=== PATIENT | female | born 1950 | race African-American/Black ===

== ENCOUNTER 2016-07-27 06:42 | Inpatient (IN) | payer OTHER ==
[~2016-07-27] VITALS: Ht 152.4 cm; Wt 131.1 kg
--- NOTE | ~2016-07-27 | H ---
[facility] [address] [place] [address] HISTORY AND PHYSICAL Name: ROBY STEPHENS Room #: 403-P ADM IN M.R.#: [id number] Admission: 07/27/16 Attend Phys: Tiffany Brownlee MD Discharge: Date of : 52 Report #: [id number] THIS REPORT FOR: //name// CC: Jay Brownlee DATE OF SERVICE: 07/27/2016 PRIMARY DOCTOR: Jay Romero MD. CHIEF COMPLAINT: Pain following a fall. HISTORY OF PRESENT ILLNESS: The patient is a 65-year-old female, morbidly obese, chronic debility who mobilizes with a walker and a wheelchair, prior CVA, depression, hypertension, presented to the ER secondary to pain following a fall. She was ambulating to the bathroom without a walker this morning when she fell to her knees. She indicates that it was a mechanical fall, but subsequent to that had bilateral knee pain and left arm pain. She has had prior CVA that has resulted in left-sided deficits in addition to having degenerative disease as well as morbid obesity limiting her mobility. She was very adamant about going home today; however, she only has her daughter and granddaughter at home and she is not capable of ambulating by herself at this time. She continues have pain. Her daughter did not feel that she was comfortable taking her home. I was asked to admit her for further therapy evaluation. PAST MEDICAL HISTORY: As stated, hypertension, prior CVA with left-sided deficits, although I found it to be mild; dyslipidemia, sleep apnea, on CPAP; morbid obesity, degenerative arthritis, diabetes, depression, prior history of herpes zoster ophthalmicus. MEDICATIONS: Cymbalta 60 daily, Aggrenox 1 b.i.d., Veena?eta 5 mg daily, lisinopril 20 daily, Os-Magdaleno 1 daily, Lipitor 80 daily, Norvasc 10 daily, ____ and Ambien at bedtime. ALLERGIES: CODEINE CAUSES HEADACHE. MILK AND OXYCODONE, REACTION UNKNOWN. SOCIAL HISTORY: She is a nonsmoker, drinks, lives with her daughter and granddaughter. She did ambulate with a walker for short distances and also uses her wheelchair. REVIEW OF SYSTEMS: A 14-point review of systems was conducted and negative except for above. FAMILY HISTORY: Reviewed and noncontributory. [facility] [address] [place] [address] HISTORY AND PHYSICAL Name: RUBEN STEPHENSITA Melissa Room #: 403-P [facility] IN .R.#: [id number] Admission: 07/27/16 Attend Phys: Tiffany Brownlee MD Discharge: Date of : 52 Report #: [id number] PHYSICAL EXAMINATION: VITAL SIGNS: Temperature of 98, pulse 79, blood pressure 120/68, and O2 sat ____% on room air. GENERAL: She is awake, alert, answering questions appropriately, in no acute respiratory distress. HEENT: Normocephalic, atraumatic. Pupils are equal. NECK: Supple. CARDIOVASCULAR: Regular rate and rhythm. No murmurs. LUNGS: Clear to auscultation bilaterally. No crackles or wheezes. ABDOMEN: Soft, obese. No distention or tenderness. EXTREMITIES: No edema. NEUROLOGIC: Nonfocal. LABS AND TESTING: X-ray of her knees bilaterally showed moderate to severe osteoarthritis involving both knees, more severe on the left. However, there is superior patellar fracture involving the apical posterior aspect of the patella and associated spur in the right lateral projection. CBC: White count of 12, H and H of 14 and 46, and platelets of 79. Sodium 139, potassium 3.9, BUN and creatinine 21 and 1.2. Her last creatinine was 1.0. In 2012, x-ray of her foot showed no acute abnormalities. ASSESSMENT AND PLAN: 1. Fall with right patella fracture and multiple contusions. We will consult ortho, but I suspect this is probably just conservative management with PT and pain medication. She is requesting a Antonio at this time, but I have indicated that she currently does not have any 5indication for it. We will get therapy to evaluate her and she may need skilled or rehab placement. 2. Chronic kidney disease. This appears to be stable overall. 3. Diabetes. Continue home meds and sliding scale insulin. 4. Sleep apnea. She can bring in her CPAP to wear here. 5. Prior cerebrovascular accident with minimal left-sided deficits. Continue her Aggrenox. 6. Hypertension. Continue home meds with holding parameters. 7. Morbid obesity. The patient would benefit from an outpatient weight loss. 8. Deep venous thrombosis prophylaxis, Lovenox. By: [id number] My Candy Brownlee MD /nt
--- NOTE | ~2016-07-27 | HC ---
[facility] [address] [place] [address] CONSULTATION Name: ROBY STEPHENS Room #: 403-P [facility] IN .R.#: [id number] Admission: 07/27/16 Attend Phys: Tiffany Brownlee MD Discharge: Date of : 52 Report #: [id number] THIS REPORT FOR: //name// CC: Jay Brownlee DATE OF SERVICE: 07/27/2016 CHIEF COMPLAINT: Bilateral knee pain. HISTORY OF PRESENT ILLNESS: The patient is a pleasant 65-year-old female seen today for evaluation of her bilateral knee pain. The patient reports that she was walking at home, was transitioning with her walker back into bed after leaving the bathroom and had her left great toe get caught on the floor or the edge of the bed and she subsequently fell. She reports a history of difficulty ambulating and primarily uses the walkers only for transfers, otherwise is using a wheelchair and she has been that way for quite some time. She reports her most recent stroke was approximately 7 years ago and she has had limited left upper and lower extremity function since that time. She does report a history of a fall approximately four months ago. She describes some difficulty with her left leg "dragging" along with her and it leaves a sahra on the floor. It does not sound like she has utilized an AFO. The patient reports that her right knee is more symptomatic than her left currently. PAST MEDICAL HISTORY: Significant for CVA x 2, hypertension, dyslipidemia, sleep apnea requiring CPAP, degenerative arthritis, type 2 diabetes, depression, herpes zoster ophthalmicus and shingles. CURRENT MEDICATIONS: Please see current MAR. ALLERGIES: CODEINE CAUSES HEADACHES, MILK AND OXYCODONE. SOCIAL HISTORY: The patient is a retired computer console operator, denies alcohol or tobacco use, ambulates minimally with a walker. REVIEW OF SYSTEMS: MUSCULOSKELETAL: The patient denies other musculoskeletal injuries. NEUROLOGIC: The patient reports diminished motor and sensory function in the left upper and lower extremities. PHYSICAL EXAMINATION: GENERAL: The patient is alert, oriented, and answers questions appropriately. VITAL SIGNS: Most recent vitals include temperature 36.8, pulse 79, respirations 18, BP 120/68. EXTREMITIES: Examination of the upper extremities reveals flexion contractures of the hand and elbow on the left side as compared to the right. No acute [address] [address] CONSULTATION Name: RUBEN STEPHENSSANFORD Torres Room #: 403-P [facility] IN M.R.#: [id number] Admission: 07/27/16 Attend Phys: Tiffany Brownlee MD Discharge: Date of : 52 Report #: [id number] swelling or deformity is noted. Hand is held in a completely flexed posture with fingers over the thumb. She has limited ability to flex and abduct the shoulder; otherwise, no active motion is noted in the upper extremities. She reports diminished sensation to light touch on the left side as compared to the right. Right side demonstrates full range of motion with no obvious motor or sensory deficit. Pelvis is stable to AP and lateral compression. Examination of the right knee demonstrates no effusion. She has mild tenderness over the patellar tendon and inferior patella. Knee is stable to varus and valgus stresses at 0 and 30 degrees. She is somewhat inhibited by her position in the bed, but is able to flex approximately 60 degrees. She reports that she can easily flex beyond 90. The patient is nontender over the quadriceps tendon, nontender over the superior patella, mild patellofemoral crepitus is noted with range of motion. She is able to flex and extend the toes and ankle against resistance. Bilateral hips: No pain with gentle range of motion. Left knee demonstrates more limited motion from 0-40 degrees. She has mild infrapatellar pain extending down over the proximal fourth of the anterior tibia. Knee is stable to varus valgus stresses. No significant effusion is noted, mild patellofemoral crepitus arc of motion of noted. No joint line tenderness is appreciated. She reports diminished sensation throughout the leg to light touch and is able to have a flicker of active great toe extension and ankle dorsiflexion, but she holds this in a position of approximately 25-30 degrees of plantar flexion, although can be brought back almost to neutral. She reports that she typically is in a more of a toe down type position, especially while trying to ambulate. Compartments are otherwise soft. No significant swelling is noted about the right or the left lower extremities. Radiographs of the knees reveal bilateral patellofemoral arthrosis and tricompartmental arthritis, more severe on the left than the right. Right knee demonstrates about the patella and a question of lucency involving the posterior apical portion of the right patella suggestive of possible fracture. Clinically, the patient was nontender over this area. IMPRESSION: 1. Bilateral anterior knee pain, osteoarthritis, trace effusion, status post fall, morbid obesity. 2. Multiple medical comorbidities. PLAN: We reviewed potential treatment options. We discussed potential utilization of further imaging studies such as MRI. After reviewing the treatment options, the patient has elected to initiate PT as well as try an intra-articular injection. Discussed with the patient that I did not seen an obvious disruption of the quadriceps tendon as she is able to actively extend her right knee without difficulty. Calves are soft and nontender. She is neurovascularly intact on the right lower extremity. We will have PT and OT work with her as well and see how she responds to the injections. At this point, I question fracture about the suprapatellar. We discussed an MRI could [facility] [address] [place] [address] CONSULTATION Name: ROBY STEPHENS Room #: 403-P ADM IN M.R.#: [id number] Admission: 07/27/16 Attend Phys: Tiffany Brownlee MD Discharge: Date of : 52 Report #: [id number] be utilized to see if there is much bone edema in this region. She preferred to hold off on that at this time. <ELECTRONICALLY SIGNED> By: Adilson Jimenez MD 07/29/16 [id number] Adilson Jimenez MD /nt
[~2016-07-27 06:42] MED LIST: ACETAMINOPHEN325 M1 PO; AGGRENOX CAPSU1 EACH PO; AMLODIPINE BESY10 MG PO; ASPIRIN EC81 M1 PO; CLONAZEPAM PO; COREG PO; COZAAR 50 MG TA50 M1 PO; CYMBALTA30 MG PO; CYMBALTA60 MG PO; DIABETA 5MG TABL5 MG PO; FENTANYL 1100 MCG/HR; GLYBURIDE 5 MG T5 M1 OR; LASIX 40 MG TAB40 MG PO; LIPITOR80 MG PO; LISINOPRIL20 MG PO; MIRALAX255 GM PO; NEXIUM40 MG PO; NORVASC 5 MG TAB5 MG PO; NOVOLOG100 UNIT/1; OS-CAL 500+D C1 EACH PO; PERCOCET 7.5-31 EACH PO; POLYETHYLENE G255 GM PO; POTASSIUM20 PO; ZOLOFT 50 MG TA50 M1 PO; ZOLPIDEM TART12.5 M1 PO; ZOLPIDEM TART12.5 MG PO
[2016-07-27 06:43] VITALS: BP 136/106
[2016-07-27] MEDS ORDERED: NORCO 5-325 TA1 EACH PO (07:54)
[2016-07-27 09:01] LABS: ABSOLUTE NEUTROPHILS 9.6 thou/uL (1.4-8.2); BASOPHILS 0.7 % (0.0-2.0); EOSINOPHILS 1.3 % (0.0-3.0); HEMATOCRIT 46.2 % (37.0-47.0); HEMOGLOBIN 14.7 gm/dL (12.0-15.0); LYMPHOCYTES 14.4 % (24.0-44.0); MCH 27.2 pg (26.0-34.0); MCHC 31.9 g/dL (28.0-37.0); MCV 85.3 fL (80.0-100.0); MONOCYTES 4.6 % (1.0-8.0); PLATELET COUNT 244 thou/uL (150-400); RBC 5.41 mil/uL (4.20-5.00); RDW 13.8 % (10.5-14.5); WBC 12.2 thou/uL (4.0-11.0)
[2016-07-27 09:03] LABS: MANUAL DIFF NO
[2016-07-27 09:08] LABS: CALCIUM 9.1 mg/dL (8.5-10.1); CREATININE 1.2 mg/dL (0.6-1.0); POTASSIUM 3.9 mmol/L (3.5-5.1)
[2016-07-27 09:38] VITALS: BP 116/72
[2016-07-27 10:35] VITALS: BP 120/68
[2016-07-27] MEDS ORDERED: NEURONTIN600 MG PO (12:17)
[2016-07-27] MEDS ORDERED: AMARYL4 MG PO (12:18)
[2016-07-27] MEDS ORDERED: HYDROCHLOROTH12.5 M1 PO (12:20)
[2016-07-27] MEDS ORDERED: JANUVIA100 MG PO (12:20)
[2016-07-27] MEDS ORDERED: TRAMADOL 50 MG50 MG PO (12:22)
[2016-07-27] MEDS ORDERED: NYSTATIN1 EA10 MC (12:22)
[2016-07-27] MEDS ORDERED: CENTRUM SILVER1 EAC4 PO (12:23)
[2016-07-27] MEDS ORDERED: MIRALAX17 GM PO (12:24)
[2016-07-27] MEDS ORDERED: [UNRECOGNIZED DRUG - OTHER] (12:26)
[2016-07-27 16:00] VITALS: BP 112/60
[2016-07-27 19:29] VITALS: BP 116/63
[2016-07-28 03:35] VITALS: BP 118/62
[2016-07-28 04:05] LABS: ABSOLUTE NEUTROPHILS 4.3 thou/uL (1.4-8.2); BASOPHILS 0.7 % (0.0-2.0); EOSINOPHILS 3.1 % (0.0-3.0); HEMATOCRIT 41.9 % (37.0-47.0); HEMOGLOBIN 13.6 gm/dL (12.0-15.0); LYMPHOCYTES 32.3 % (24.0-44.0); MCH 27.6 pg (26.0-34.0); MCHC 32.5 g/dL (28.0-37.0); MCV 85.2 fL (80.0-100.0); MONOCYTES 6.8 % (1.0-8.0); PLATELET COUNT 243 thou/uL (150-400); POLYS 57.1 % (36.0-66.0); RBC 4.92 mil/uL (4.20-5.00); RDW 14.2 % (10.5-14.5); WBC 7.5 thou/uL (4.0-11.0)
[2016-07-28 04:17] LABS: CALCIUM 8.6 mg/dL (8.5-10.1); CREATININE 1.4 mg/dL (0.6-1.0); POTASSIUM 3.6 mmol/L (3.5-5.1)
[2016-07-28 04:18] LABS: MANUAL DIFF NO
[2016-07-28 08:47] VITALS: BP 138/81
[2016-07-28 15:56] VITALS: BP 100/51
[2016-07-28 20:00] VITALS: BP 92/55
[2016-07-29 04:05] LABS: HEMATOCRIT 41.3 % (37.0-47.0); HEMOGLOBIN 13.4 gm/dL (12.0-15.0); MCH 27.6 pg (26.0-34.0); MCHC 32.4 g/dL (28.0-37.0); MCV 85.3 fL (80.0-100.0); RBC 4.84 mil/uL (4.20-5.00); WBC 7.7 thou/uL (4.0-11.0)
[2016-07-29 04:10] VITALS: BP 114/75
[2016-07-29 04:20] LABS: ALBUMIN 2.5 g/dL (3.4-5.0); CALCIUM 8.6 mg/dL (8.5-10.1); CREATININE 1.7 mg/dL (0.6-1.0); PHOSPHORUS 4.6 mg/dL (2.5-4.9); POTASSIUM 4.3 mmol/L (3.5-5.1)
[2016-07-29 07:29] VITALS: BP 106/64
[2016-07-29 16:35] VITALS: BP 107/89
[2016-07-29 19:20] VITALS: BP 106/64
[2016-07-30 04:37] VITALS: BP 120/67
[2016-07-30 05:33] LABS: CALCIUM 9.3 mg/dL (8.5-10.1); CREATININE 1.5 mg/dL (0.6-1.0); PHOSPHORUS 2.9 mg/dL (2.5-4.9); POTASSIUM 4.1 mmol/L (3.5-5.1)
[2016-07-30 07:49] VITALS: BP 139/75
[2016-07-30 07:52] VITALS: BP 139/75
[2016-07-30 16:08] VITALS: BP 123/66
[2016-07-30 19:25] VITALS: BP 132/83
[2016-07-31 05:54] VITALS: BP 164/88
[2016-07-31 07:42] VITALS: BP 134/74
[2016-07-31] MEDS ORDERED: FLEXERIL PO (09:39)
[2016-07-31] MEDS ORDERED: TRAMADOL 50 MG50 MG PO (09:39)
[2016-07-31 12:27] VITALS: BP 134/74
[2016-07-31 16:18] VITALS: BP 134/74
== END 2016-07-31 18:00 | disposition home health service (06) | DRG 682 ==
LOC: ER 06:42 → 4N 08:52 → EROBS 08:52 → 4N 09:38
PROVIDERS: Emergency Medicine; Family Medicine; Hospitalist
DX: N17.9 Acute kidney failure, unspecified (principal); E43 Unspecified severe protein-calorie malnutrition; S82.001A Unspecified fracture of right patella, initial encounter for closed fracture; Z68.43 Body mass index [BMI] 50.0-59.9, adult; E66.01 Morbid (severe) obesity due to excess calories; E78.5 Hyperlipidemia, unspecified; M19.90 Unspecified osteoarthritis, unspecified site; F32.9 Major depressive disorder, single episode, unspecified; M21.372 Foot drop, left foot; E11.22 Type 2 diabetes mellitus with diabetic chronic kidney disease; I12.9 Hypertensive chronic kidney disease with stage 1 through stage 4 chronic kidney disease, or unspecified chronic kidney disease; N18.9 Chronic kidney disease, unspecified; B02.9 Zoster without complications; S80.02XA Contusion of left knee, initial encounter; S80.01XA Contusion of right knee, initial encounter; G47.30 Sleep apnea, unspecified; Z79.899 Other long term (current) drug therapy; Z86.73 Personal history of transient ischemic attack (TIA), and cerebral infarction without residual deficits; Z88.6 Allergy status to analgesic agent; Z91.011 Allergy to milk products; Z79.82 Long term (current) use of aspirin; W18.39XA Other fall on same level, initial encounter; Y93.89 Activity, other specified; Y92.89 Other specified places as the place of occurrence of the external cause; Y99.8 Other external cause status
CPT/HCPCS: 10790